=== PATIENT | female | born 1980 | race Caucasian/White ===

== ENCOUNTER 2018-01-21 11:26 | Emergency (ER) | payer SELFPAY ==
[2018-01-21 11:41] VITALS: BP 141/96
--- NOTE | 2018-01-21 15:37 | UC ---
Luke Garza Nikita, scribed for Virgilio Navarrete MD on 01/21/18 at 1150 . Eye Complaint HPI - HPI Summary HPI Summary: This patient is a 37 year old F presenting to [facility] with a chief complaint of possible pink eye since earlier today. She reports her eyes were pruritic, especially in the L eye and started rubbing it. The patient rates the pain 0/10 in severity. Symptoms aggravated by nothing. Symptoms alleviated by nothing. Patient denies eye pain, blurred or decreased vision. The patient also requested for rx for an inhaler because she has hx of asthma. - History of Current Complaint Chief Complaint: UCEye Stated Complaint: EYE COMPLAINT Time Seen by Provider: 01/21/18 11:35 Hx Obtained From: Patient Onset/Duration: Sudden Onset, Lasting Hours, Still Present Timing: Constant Severity Currently: None Pain Intensity: 0 Pain Scale Used: 0-10 Numeric Aggravating Factor(s): Nothing Alleviating Factor(s): Nothing - Allergies/Home Medications Allergies/Adverse Reactions: Allergies Allergy/AdvReac Type Severity Reaction Status Date / Time No Known Allergies Allergy Verified 01/21/18 11:37 PMH/Surg Hx/FS Hx/Imm Hx Endocrine History: Other Other Endocrine History: No DM Respiratory History: Asthma - Surgical History Surgical History: None - Family History Known Family History: Negative: Cardiac Disease, Hypertension, Diabetes - Social History Alcohol Use: Occasionally Substance Use Type: None Smoking Status (MU): Never Smoked Tobacco Review of Systems Constitutional: Other - denies fever Eyes: Other - possible pink eye; denies decreased or blurred vision or eye pain All Other Systems Reviewed And Are Negative: Yes Physical Exam - Summary Physical Exam Summary: VITAL SIGNS: Reviewed. GENERAL: ~Patient is a well-developed and nourished FEMALE who is lying comfortable in the stretcher. ~Patient is not in any acute respiratory distress. HEAD AND FACE: Normocephalic EYES: PERRLA, EOMI x 2. Conjunctival injection but normal visual acuity. EARS: Hearing grossly intact. MOUTH: Oropharynx within normal limits. NECK: Supple, trachea is midline, no adenopathy, no JVD, no carotid bruit. CHEST: Symmetric, no tenderness at palpation LUNGS: Clear to auscultation bilaterally. No wheezing or crackles. CVS: Regular rate and rhythm, S1 and S2 present, no murmurs or gallops appreciated. ABDOMEN: Soft, non-tender. Bowel sounds are normal. No abdominal abnormal pulsations. EXTREMITIES: Full ROM in all major joints, no edema, no cyanosis or clubbing. NEURO: Alert and oriented x 3. No acute neurological deficits. Speech is normal and follows commands. SKIN: Dry and warm Triage Information Reviewed: Yes Vital Signs: Initial Vital Signs Temp 98.5 F 01/21/18 11:38 Pulse 72 01/21/18 11:38 Resp 14 01/21/18 11:38 BP 141/96 01/21/18 11:38 Pulse Ox 100 01/21/18 11:38 Vital Signs Reviewed: Yes Eye Complaint Course/Dx - Course Course Of Treatment: This patient is a 37 year old F presenting to [facility] with a chief complaint of possible pink eye since earlier today. The pt is hemodynamically stable, alert and oriented x3. The patient was found to have increased BP in UC. The patient will follow up with PCP for better control of BP. I discussed all the findings and test results with the patient. The patient will be discharged with dx of allergic rhinitis and instructions to follow up with their PCP. Patient was instructed to return to the urgent care or go to ER immediately if any of the symptoms return or worsens. Plan of care was discussed with the patient, and patient understands and agrees. All questions were answered to patient satisfaction. There were no further complaints or concerns. - Differential Dx/Diagnosis Provider Diagnoses: allergic rhinitis Discharge - Sign-Out/Discharge Documenting (check all that apply): Discharge/Admit/Transfer - Discharge Plan Condition: Stable Disposition: HOME Prescriptions: Albuterol HFA INHALER* [Ventolin HFA Inhaler*] 1 puff INH Q4H PRN #1 mdi PRN Reason: Shortness Of Breath Olopatadine 0.1% OPHTH (NF) [Patanol 0.1% OPHTH (NF)] 1 drop BOTH EYES BID #1 btl Patient Education Materials: Allergic Rhinitis (DC) Referrals: No Primary Care Phys,NOPCP [Primary Care Provider] - Additional Instructions: Take medications as instructed Increase your fluid intake Return to the UC if symptoms worsen The documentation as recorded by the Luke escudero Nikita accurately reflects the service I personally performed and the decisions made by , Virgilio Navarrete MD.
== END 2018-01-21 11:58 | disposition home or self-care (01) ==
LOC: UCEAST 11:26
DX: J45.909 Unspecified asthma, uncomplicated (principal)
CPT/HCPCS: 99202; G0463

== ENCOUNTER 2018-02-23 10:03 | Emergency (ER) | payer BC ==
[2018-02-23 10:25] VITALS: BP 123/81
--- NOTE | 2018-02-23 11:01 | UC ---
Shoulder Pain HPI - HPI Summary HPI Summary: Patient presents with 3 weeks of left posterior shoulder pain. No pain at rest but it hurts when she moves her arm, coughs or sneezes. Some discomfort with deep inspiration. No numbness or tingling. No trauma or injury. No chest pain or shortness of breath. - History of Current Complaint Chief Complaint: UCUpperExtremity Stated Complaint: SHOULDER PAIN Time Seen by Provider: 02/23/18 10:33 Hx Obtained From: Patient Hx Last Menstrual Period: 02/14/18 Onset/Duration: Gradual Onset, Lasting Weeks, Still Present Timing: Constant Severity Initially: Moderate Severity Currently: Moderate Pain Intensity: 7 Pain Scale Used: 0-10 Numeric Character: Aching Aggravating Factor(s): Movement Alleviating Factor(s): Rest Associated Signs And Symptoms: Negative: Swelling, Numbness/Tingling Related History: Dominant Hand Right - Allergies/Home Medications Allergies/Adverse Reactions: Allergies Allergy/AdvReac Type Severity Reaction Status Date / Time No Known Allergies Allergy Verified 02/23/18 10:25 PMH/Surg Hx/FS Hx/Imm Hx Respiratory History: Asthma - Surgical History Surgical History: None Surgery Procedure, Year, and Place: denies - Family History Known Family History: Negative: Cardiac Disease, Hypertension, Diabetes - Social History Alcohol Use: Occasionally Substance Use Type: None Smoking Status (MU): Never Smoked Tobacco - Immunization History Most Recent Tetanus Shot: UNK Review of Systems Constitutional: Negative Skin: Negative Respiratory: Cough Cardiovascular: Negative Gastrointestinal: Negative Musculoskeletal: Myalgia All Other Systems Reviewed And Are Negative: Yes Physical Exam Triage Information Reviewed: Yes Appearance: Well-Appearing, No Pain Distress, Well-Nourished Vital Signs: Initial Vital Signs Temp 98.2 F 02/23/18 10:18 Pulse 62 02/23/18 10:18 Resp 18 02/23/18 10:18 BP 123/81 02/23/18 10:18 Pulse Ox 100 02/23/18 10:18 Vital Signs Reviewed: Yes Eyes: Positive: Conjunctiva Clear ENT: Positive: Hearing grossly normal Neck: Positive: Supple, Nontender Respiratory: Positive: No respiratory distress, No accessory muscle use Cardiovascular: Positive: Pulses Normal Abdomen Description: Positive: Soft Musculoskeletal: Positive: ROM Intact, No Edema, Other: - TTP LEFT MID BACK Neurological: Positive: Alert Psychological: Positive: Age Appropriate Behavior Skin: Negative: rashes Diagnostics - Radiology CXR Xray Interpretation: No Acute Changes Radiology Interpretation Completed By: Radiologist Shoulder Course/Dx - Differential Dx/Diagnosis Provider Diagnoses: ACUTE MUSCLE STRAIN Discharge - Sign-Out/Discharge Documenting (check all that apply): Discharge/Admit/Transfer - Discharge Plan Condition: Stable Disposition: HOME Prescriptions: Cyclobenzaprine TAB* [Flexeril TAB*] 10 mg PO BID PRN #30 tab PRN Reason: Pain Patient Education Materials: Muscle Strain (ED) Forms: *Work Release Referrals: Darlene Chapin MD [Medical Doctor] - 2 Weeks Additional Instructions: CXR TODAY UNREMARKABLE. LIKELY MUSCULOSKELETAL STRAIN. YOUR SYMPTOMS SHOULD IMPROVE SIGNIFICANTLY OVER THE NEXT 1-2 WEEKS. IF YOU DO NOT IMPROVE EXPECTED FOLLOW-UP WITH A PCP OR ORTHO. OTC IBUPROFEN OR ALEVE NEEDED FOR DISCOMFORT. MUSCLE RELAXER BEFORE BED. BE SURE TO GO THROUGH SLOW RANGE OF MOTION AND STRETCHING EXERCISES DAILY YOU ARE ABLE TO PREVENT STIFFENING UP AND MAKING THE DISCOMFORT WORSE. GO TO ER WITHOUT FAIL IF YOU DEVELOP WORSENING PAIN, SHORTNESS OF BREATH, CHEST PAIN, NAUSEA, SWEATS, DIZZINESS OR ANY OTHER CONCERNING SYMPTOMS. - Billing Disposition and Condition Condition: STABLE Disposition: Home
--- NOTE | 2018-02-23 11:34 | RAD ---
INDICATION: Cough, LEFT side pleuritic chest pain. History of asthma. COMPARISON: No relevant prior exams available on the [facility] PACS for comparison. TECHNIQUE: Dual energy PA and routine lateral views of the chest were obtained. REPORT: Clear lungs and pleural spaces. Negative for pneumothorax. The heart, pulmonary vasculature, and mediastinal contours are unremarkable. Unremarkable osseous structures and soft tissue contours. IMPRESSION: No evidence for pneumonia. Negative exam.
== END 2018-02-23 12:00 | disposition home or self-care (01) ==
LOC: UCEAST 10:03
DX: S46.912A Strain of unspecified muscle, fascia and tendon at shoulder and upper arm level, left arm, initial encounter (principal); X58.XXXA Exposure to other specified factors, initial encounter; Y93.9 Activity, unspecified; Y92.9 Unspecified place or not applicable; R05 Cough; J45.909 Unspecified asthma, uncomplicated
CPT/HCPCS: 71046; 99212; G0463

== ENCOUNTER 2018-09-12 18:34 | Emergency (ER) | payer SELFPAY ==
[2018-09-12] MEDS ORDERED: Albuterol 2.5 MG/3 ML NEB.SOL* (0.083%) INH ONE ×3 (18:44→19:36)
[2018-09-12] MEDS ORDERED: Azithromycin TAB* 250 MG PO ONE (18:44)
[2018-09-12] MEDS ORDERED: predniSONE TAB* 20 MG PO ONE (18:44)
[2018-09-12 18:48] VITALS: BP 162/100
--- NOTE | 2018-09-12 19:07 | UC ---
Respiratory Complaint HPI - HPI Summary HPI Summary: 38-year-old woman comes to clinic today with a chief complaint of shortness of breath. Started 2 days ago. She has upper respiratory tract infection symptoms with rhinorrhea and cough. She has chest congestion she's having a hard time getting sputum up. Her nebulizer machine treatments at home are not working well. No complaint of ear pain. No recent fever. - History of Current Complaint Chief Complaint: UCRespiratory Stated Complaint: COUGH,CONGESTION Time Seen by Provider: 09/12/18 18:39 Hx Last Menstrual Period: Apr 2018 Pain Intensity: 2 - Allergies/Home Medications Allergies/Adverse Reactions: Allergies Allergy/AdvReac Type Severity Reaction Status Date / Time No Known Allergies Allergy Verified 09/12/18 18:48 PMH/Surg Hx/FS Hx/Imm Hx Previously Healthy: Yes Respiratory History: Asthma - Surgical History Surgical History: None Surgery Procedure, Year, and Place: denies - Family History Known Family History: Positive: Diabetes, Respiratory Disease - asthma Negative: Cardiac Disease, Hypertension - Social History Alcohol Use: Occasionally Substance Use Type: None Smoking Status (MU): Never Smoked Tobacco - Immunization History Most Recent Tetanus Shot: UNK Review of Systems All Other Systems Reviewed And Are Negative: Yes Constitutional: Positive: Negative Skin: Positive: Negative Eyes: Positive: Negative ENT: Positive: Sore Throat, Nasal Discharge, Sinus Congestion Respiratory: Positive: Shortness Of Breath, Cough, Other - WHEEZING Cardiovascular: Positive: Negative Gastrointestinal: Positive: Negative Motor: Positive: Negative Neurovascular: Positive: Negative Musculoskeletal: Positive: Negative Neurological: Positive: Negative Psychological: Positive: Negative Is Patient Immunocompromised?: No Physical Exam Triage Information Reviewed: Yes Appearance: No Pain Distress, Well-Nourished, Ill-Appearing - MILD, Other: - MILD RESPIRATORY DISTRESS Vital Signs: Initial Vital Signs Temp 98.7 F 09/12/18 18:45 Pulse 106 09/12/18 18:45 Resp 18 09/12/18 18:45 BP 162/100 09/12/18 18:45 Pulse Ox 99 09/12/18 18:45 Vital Signs Reviewed: Yes Eye Exam: Normal Eyes: Positive: Conjunctiva Clear ENT: Positive: Pharyngeal erythema, Nasal congestion, Nasal drainage, TMs normal Neck exam: Normal Neck: Positive: Supple Respiratory: Positive: Respiratory distress - MILD, Wheezing - POOR AIR MOVEMENT Cardiovascular: Positive: RRR Musculoskeletal Exam: Normal Musculoskeletal: Positive: Strength Intact, ROM Intact Neurological Exam: Normal Neurological: Positive: Alert, Muscle Tone Normal Psychological Exam: Normal Psychological: Positive: Normal Response To Family, Age Appropriate Behavior Skin Exam: Normal UC Diagnostic Evaluation - Laboratory O2 Sat by Pulse Oximetry: 99 Respiratory Course/Dx - Course Course Of Treatment: Breathing improved in clinic after albuterol nebulizer. There is more air movement. Second nebulizer given with more improvement. Patient started on a azithromycin and prednisone. Follow-up with primary care doctor are get rechecked here if worse. - Differential Dx/Diagnosis Provider Diagnosis: Bronchitis, Asthma Discharge - Sign-Out/Discharge Documenting (check all that apply): Patient Departure All imaging exams completed and their final reports reviewed: No Studies - Discharge Plan Condition: Stable Disposition: HOME Prescriptions: Azithromycin 250 mg PO DAILY #4 tablet predniSONE TAB* [Deltasone 20 MG TAB*] 40 mg PO DAILY #8 tab Patient Education Materials: Acute Bronchitis (ED), Asthma (ED) Referrals: [facility] PHYSICIAN REFERRAL [Outside] Additional Instructions: FOLLOW UP WITH YOUR DOCTOR. GET RECHECKED FOR ANY WORSENING OF YOUR CONDITION; SHORTNESS OF BREATH, YOU FEEL ILL OR QUESTIONS OR CONCERNS. - Billing Disposition and Condition Condition: STABLE Disposition: Home
== END 2018-09-12 19:44 | disposition home or self-care (01) ==
LOC: UCEAST 18:34
DX: J40 Bronchitis, not specified as acute or chronic (principal); J45.909 Unspecified asthma, uncomplicated
CPT/HCPCS: 99213; A9270-GY; G0463; J7512

== ENCOUNTER 2019-01-14 07:13 | Emergency (ER) | payer OTHER ==
[2019-01-14] MEDS ORDERED: Albuterol 2.5 MG/3 ML NEB.SOL* (0.083%) INH ONE (07:21)
[2019-01-14] MEDS ORDERED: Ipratropium 0.5MG/2.5ML NEB* 0.5 MG/2.5 ML NEB.SOLN INH ONE (07:21)
[2019-01-14 07:23] VITALS: BP 145/97
[2019-01-14] MEDS ORDERED: predniSONE TAB* 20 MG PO ONE (07:34)
--- NOTE | 2019-01-14 08:55 | UC ---
Respiratory Complaint HPI - HPI Summary HPI Summary: 1 WEEK OF WORSENING COUGH AND SHORTNESS OF BREATH. HAS SOME MILD PLEURITIC PAIN. HAS A HISTORY OF ASTHMA AND RAN OUT OF HER ALBUTEROL ABOUT ONE WEEK AGO. AT HER BASELINE PATIENT STATES SHE USES HER ALBUTEROL ON A DAILY BASIS TO KEEP HER SYMPTOMS AT BAY. SHE DENIES ANY FEVER OR CONGESTION. - History of Current Complaint Chief Complaint: UCRespiratory Stated Complaint: BREATHING Time Seen by Provider: 01/14/19 07:21 Hx Obtained From: Patient Hx Last Menstrual Period: about 2 months ago (irr periods) Onset/Duration: Gradual Onset, Lasting Days, Still Present Timing: Constant Severity Initially: Moderate Severity Currently: Moderate Pain Intensity: 6 Pain Scale Used: 0-10 Numeric Character: Cough: Nonproductive Aggravating Factors: Exertion Alleviating Factors: Bronchodilator Associated Signs And Symptoms: Positive: Dyspnea, Pleuritic Chest Pain, Wheezing. Negative: Fever, URI - Allergies/Home Medications Allergies/Adverse Reactions: Allergies Allergy/AdvReac Type Severity Reaction Status Date / Time No Known Allergies Allergy Verified 01/14/19 07:20 Home Medications: Home Medications Albuterol 2.5MG/3ML (0.083%)* [Ventolin 2.5 MG/3 ML NEB.BENJAMIN*] 2.5 mg INH Q4H PRN 01/14/19 [History Confirmed 01/14/19] PMH/Surg Hx/FS Hx/Imm Hx Respiratory History: Asthma - Surgical History Surgical History: Yes Surgery Procedure, Year, and Place: Dental - Family History Known Family History: Positive: Diabetes, Respiratory Disease - asthma Negative: Cardiac Disease, Hypertension - Social History Alcohol Use: Occasionally Substance Use Type: None Substance Use Comment - Amount & Last Used: hx IV drug use Smoking Status (MU): Never Smoked Tobacco - Immunization History Most Recent Tetanus Shot: UNK Review of Systems All Other Systems Reviewed And Are Negative: Yes Constitutional: Positive: Negative Respiratory: Positive: Shortness Of Breath, Cough Cardiovascular: Positive: Negative Gastrointestinal: Positive: Negative Physical Exam Triage Information Reviewed: Yes Appearance: Well-Appearing, No Pain Distress, Well-Nourished Vital Signs: Initial Vital Signs Temp 97.6 F 01/14/19 07:17 Pulse 84 01/14/19 07:17 Resp 18 01/14/19 07:17 BP 145/97 01/14/19 07:17 Pulse Ox 94 01/14/19 07:17 Vital Signs Reviewed: Yes Eyes: Positive: Conjunctiva Clear ENT: Positive: Hearing grossly normal, Pharynx normal, TMs normal Neck: Positive: Supple, Nontender, No Lymphadenopathy Respiratory: Positive: No respiratory distress, No accessory muscle use, Decreased breath sounds. Negative: Wheezing Cardiovascular Exam: Normal Abdomen Description: Positive: Soft Musculoskeletal: Positive: No Edema Neurological: Positive: Alert Psychological: Positive: Age Appropriate Behavior Skin: Negative: Rashes Diagnostics - Radiology CXR Radiology Interpretation Completed By: Radiologist Summary of Radiographic Findings: NO ACTIVE CARDIOPULMONARY DISEASE. Re-Evaluation - Re-Evaluation First Eval Re-Evaluation Time: 08:55 - FEELS A BIT BETTER AFTER DUONEB. O2 SAT STILL 94% Change: Improved Respiratory Course/Dx - Course Course Of Treatment: CHEST X-RAY TODAY UNREMARKABLE. PATIENT FEELS A BIT BETTER AFTER ALBUTEROL/ IPRATROPIUM NEB TREATMENT. ALBUTEROL INHALER TODAY HAS BEEN REFILLED. CONTINUE COURSE OF PREDNISONE FOR 4 MORE DAYS. ADVISED OXYGEN RECHECK IN 2 DAYS HER O2 SAT TODAY WAS 94% ONLY. ADVISED TO GO TO THE ER WITHOUT FAIL IF HER SYMPTOMS WORSEN. DISCUSSED WITH PATIENT THAT HER ASTHMA DOES NOT SEEM TO BE IDEALLY MANAGED SHE IS HAVING TO USE HER ALBUTEROL ON A DAILY BASIS AT HER BASELINE. STRONGLY ENCOURAGED HER TO ESTABLISH WITH A PCP SO SHE CAN FURTHER DISCUSS. - Differential Dx/Diagnosis Provider Diagnosis: Asthma exacerbation Discharge - Sign-Out/Discharge Documenting (check all that apply): Patient Departure All imaging exams completed and their final reports reviewed: Yes - Discharge Plan Condition: Stable Disposition: HOME Prescriptions: Albuterol HFA INHALER* [Ventolin HFA Inhaler*] 2 puff INH Q4H PRN #1 mdi PRN Reason: Shortness Of Breath predniSONE TAB* [Deltasone TAB*] 50 mg PO DAILY #4 tab Patient Education Materials: Asthma (ED) Forms: *Work Release Referrals: [facility] [Outside] - 3 Days Additional Instructions: CHEST X-RAY TODAY WAS UNREMARKABLE. YOUR SYMPTOMS ARE LIKELY DUE TO AN ASTHMA EXACERBATION. GIVEN THAT YOU ARE HAVING TO TAKE YOUR RESCUE ALBUTEROL INHALER ON A DAILY BASIS TO HELP KEEP YOUR SYMPTOMS AT BAY I STRONGLY RECOMMEND YOU FOLLOW-UP WITH A PRIMARY CARE PHYSICIAN TO FURTHER DISCUSS YOUR ASTHMA MANAGEMENT. YOUR OXYGEN SATURATION WAS SLIGHTLY LOW TODAY AT 94%. ONCE YOUR SYMPTOMS HAVE BEEN TREATED THIS SHOULD IMPROVE. YOU NEED TO HAVE YOUR OXYGEN LEVELS RECHECKED IN 2 -3 DAYS. CALL [facility] FOR AN APPOINTMENT. IF YOU ARE UNABLE TO SECURE A FOLLOW-UP APPOINTMENT RETURN TO THE URGENT CARE FOR REEVALUATION. IF YOUR SYMPTOMS WORSEN GO TO THE ER WITHOUT FAIL. CALL THE NUMBER BELOW FOR ASSISTANCE IN ESTABLISHING WITH A PCP An additional resource available to assist in finding the appropriate physician for your health care needs is the [facility] ([facility]). You may contact them by calling [phone]. - Billing Disposition and Condition Condition: STABLE Disposition: Home
== END 2019-01-14 09:08 | disposition home or self-care (01) ==
LOC: UCEAST 07:13
DX: J45.901 Unspecified asthma with (acute) exacerbation (principal); R07.81 Pleurodynia
CPT/HCPCS: 71046; 84702; 99212; G0463; J7512

== ENCOUNTER 2019-02-25 10:53 | Emergency (ER) | payer OTHER ==
--- OUTSIDE RECORDS SUMMARY | 2019-02-25 10:59 | XMS REPORT | Continuity of Care Document ---
:1980 External Reference #:[id number] Author Name Evelyn Berry Care Team Providers Name Role Phone Patient's Choice Primary Care Physician Unavailable Payers Date Identification Numbers Payment Provider Subscriber Effective: 2019 Policy Number: [id number] Leobardo Dupont PayID: [id number] [address] [place] [phone] Family History Date Family Member(s) Observation Comments General Thyroid Disease Father Thyroid Disease Onset: (2005) Mother Ovarian Cancer A+W in 2019 Siblings 2 older brothers Social History Type Date Description Comments Sex Unknown Tobacco Use Start: Unknown End: Former Cigarette Smoker Unknown Smoking Status Reviewed: 02/24/19 Former Cigarette Smoker ETOH Use Occasionally consumes alcohol Tobacco Use Start: Unknown End: Patient is a former smoker Unknown Recreational Drug Use Former Drug User Allergies, Adverse Reactions, Alerts Description No Known Drug Allergies Medications Active Medications SIG Qnty Indications Ordering Provider Date Ventolin HFA Inhale 2 Puffs By Unknown 108(90Base) Mouth Every 4 mcg/Act Aerosol Hours Vital Signs Date Vital Result Comment 02/24/2019 3:10pm Weight 191.00 lb Heart Rate 77 /min BP Systolic 132 mmHg BP Diastolic 86 mmHg O2 % BldC Oximetry 97 % Plan of Treatment Future Appointment(s):03/31/2019 1:30 pm - Kamryn Dai NP at [facility] [id number]/13/2019 - Enrrique Dior MDB18.2 Chronic viral hepatitis CFollow up:3 weeks with K63.89 Other specified diseases of intestineFollow up:3 weeks with E66.9 Obesity, unspecifiedFollow up:3 weeks with
--- OUTSIDE RECORDS SUMMARY | 2019-02-25 10:59 | XMS REPORT | Continuity of Care Document ---
:1980 Author Organization [facility] Address [address], [place] [id number] Phone Care Team Providers Name Role Phone Beth Samuels NP Unavailable Unavailable Allergies, Adverse Reactions, Alerts Substance Reaction Status No Known Allergies Active Medications Medication Instructions Dosage Effective Dates (start - Status Comments stop) Ventolin HFA 90 - Active mcg/actuation aerosol inhaler Problems Condition Effective Dates (start - Clinical Status Comments stop) Human immunodeficiency virus [HIV] - counseling Encntr screen for infections w sexl mode of transmiss Encounter for oth general cnsl and advice on contraception Human immunodeficiency virus [HIV] - counseling Irregular menstruation, unspecified Encounter for oth general cnsl and advice on procreation Other urogenital trichomoniasis Encounter for screening for malignant neoplasm of cervix Unspecified viral hepatitis C without hepatic coma Encounter for oth general cnsl and advice on contraception Procedures Procedure Date No information Results Test Name Date and Time Measure Units Reference Range Abnormal Flag Status Comments No information Advance Directives Directive Yes / No Effective Date File Name No information Encounters Encounter Practice Location Reason(s) Diagnoses Date Provider Providers Description For Visit Copied on Encounter [facility] [place] [address] Beth. [facility] [address] [facility] [facility], , [place], [place], [address], [id number], [place]. [place] tel:+[phone] tel:[phone] [facility] [place] immunodeficiency 8-201 Beth. Provider: Southern virus [HIV] 9 [address] counselingEncntr [place], [address], [address] [place] infections w sexl [place], [place] [address], [place], [place], [place], transmissEncounter [address], [place], [address]. [id number], for ot general [place]. tel:+[phone] [place] cnsl and advice on tel:[phone] tel:[phone] [facility] [place] immunodeficiency 6-201 Jeannie. Southern virus [HIV] [address] counselingIrregular [place], [address] [place] unspecifiedEncounte [place], [place], [place], [place] for ot general [place] [id number], [id number], procreationOther [place]. [place] urogenital tel:[phone] trichomoniasisEncou [phone] nter for screening for malignant neoplasm of cervixUnspecified viral hepatitis C without hepatic comaEncounter for ot general cnsl and advice on contraception Family History Family Member Diagnosis Age At Onset 1st degree relative No hx of coronary heart disease (female <65, male <55) 1st degree relative No hx of venous thromboembolism Mother uterine Immunizations Vaccine Date Status Comments No information Payers Payer name Insurance type Covered libertarian ID Authorization(s) Medicaid MC [id number] Social History Type Description Quantity Date Captured Comments Alcohol Use Details Unknown Caffeine Use Details Unknown Tobacco Use Status Unknown Smoking Status Never smoker Sex Female Vital Signs Date / Height Weight BMI Pulse Blood Temperature Respiratory Body Head BMI Pulse Inhaled Time: Rate Pressure Rate Surface Circumference percentile Ox Ox Area No information Chief Complaint And Reason For Visit No information Reason For Referral Reason For Referral No information Plan Of Treatment Date Type Action Status No information History Of Present Illness Encounter Date Complaint History Of Present Illness No information Functional Status Date Functional Assessment No information Medications Administered Medication Instructions Dosage Effective Dates (start - stop) Status Comments No information Instructions Date Instruction Additional Information No information Assessments Type Assessment Date No information Goals Health Concern Goal Type Priority Status Date No information Medical Equipment Description Device [place] Device Identifier Effective Dates (start - stop ) Status No information Mental Status Date Cognitive Assessment No information Health Concerns Observation Date No information Concern Status Date No information
--- OUTSIDE RECORDS SUMMARY | 2019-02-25 10:59 | XMS REPORT | Continuity of Care Document ---
:1980 Author Organization [facility] Address [address], [place] [id number] Phone Care Team Providers Name Role Phone [...] Copied on Encounter [facility] [place] 7 Beth. [facility] 9 [address] [facility], [address] [facility], , [place], [place], [address], [id number], [place]. [place] tel:[phone] tel:[phone] [facility] Human Arvind Referring [facility] [place] immunodeficiency 8-201 Beth. Provider: Southern virus [HIV] 9 [address] counselingEncntr [place] Arvind [place], [place], [address], [address] infections w sexl [place], [address] St, St, [place], [place], [place], [place] [address], [place], [address]. [id number], for ot general [place]. tel:+[phone] [place] cnsl and advice on tel:[phone] tel:[phone] contraception [phone] [facility] Human Mar-0 [facility] [place] immunodeficiency 6-201 Jeannie. [place] virus [HIV] 9 [address] counselingIrregular [place], [address], [address], [address] Craig unspecifiedEncounte [place], St, [place], [place] for [place] [id number], [id number], procreationOther [place]. [place] urogenital tel:[phone] trichomoniasisEncou [phone] nter for screening for malignant neoplasm of [...] information Payers Payer name Insurance type Covered republican ID Authorization(s) Medicaid MC [id number] Social History Type Description Quantity Date Captured [...] Date No information Medical Equipment Description Device [place] Device Identifier Effective Dates (start - stop ) Status No information Mental Status Date Cognitive Assessment No information Health Concerns Observation Date No information Concern Status Date No information
[2019-02-25 11:12] VITALS: BP 118/79
--- NOTE | 2019-02-25 12:34 | UC ---
Throat Pain/Nasal Brain HPI - HPI Summary HPI Summary: Head congestion and cold symptoms for 2 days. Patient has a history of asthma and she's run out of her albuterol inhaler. - History of Current Complaint Chief Complaint: UCRespiratory Stated Complaint: SINUS ISSUES Time Seen by Provider: 02/25/19 12:30 Hx Obtained From: Patient Hx Last Menstrual Period: 10/2018 ?: No Onset/Duration: Gradual Onset Severity: Mild Pain Intensity: 5 Cough: Nonproductive Associated Signs & Symptoms: Positive: Wheezing - Allergies/Home Medications Allergies/Adverse Reactions: Allergies Allergy/AdvReac Type Severity Reaction Status Date / Time No Known Allergies Allergy Verified 02/25/19 11:13 PMH/Surg Hx/FS Hx/Imm Hx Previously Healthy: Yes Respiratory History: Asthma - Surgical History Surgical History: Yes Surgery Procedure, Year, and Place: Dental - Family History Known Family History: Positive: Diabetes, Respiratory Disease - asthma Negative: Cardiac Disease, Hypertension - Social History Alcohol Use: Occasionally Substance Use Type: None Substance Use Comment - Amount & Last Used: hx IV drug use Smoking Status (MU): Never Smoked Tobacco - Immunization History Most Recent Tetanus Shot: UNK Review of Systems All Other Systems Reviewed And Are Negative: Yes ENT: Positive: Nasal Discharge, Sinus Congestion Respiratory: Positive: Cough - Nonproductive cough, patient has had some wheezing but she is out of her albuterol inhaler and would like a refill. Is Patient Immunocompromised?: No Physical Exam Triage Information Reviewed: Yes Appearance: Well-Appearing, No Pain Distress, Well-Nourished Vital Signs: Initial Vital Signs Temp 98 F 02/25/19 11:10 Pulse 65 02/25/19 11:10 Resp 16 02/25/19 11:10 BP 118/79 02/25/19 11:10 Pulse Ox 99 02/25/19 11:10 Vital Signs Reviewed: Yes Eyes: Positive: Conjunctiva Clear ENT: Positive: Pharynx normal, Nasal congestion, Nasal drainage - Clear nasal coryza, TMs normal, Uvula midline Neck: Positive: Supple, Nontender, No Lymphadenopathy Respiratory: Positive: Lungs clear, Normal breath sounds, No respiratory distress, No accessory muscle use Cardiovascular: Positive: RRR, No Murmur, Pulses Normal, Brisk Capillary Refill Musculoskeletal Exam: Normal Neurological Exam: Normal Psychological Exam: Normal Skin Exam: Normal Throat Pain/Nasal Course/Dx - Course Course Of Treatment: Patient is comfortable here. Basically she is requesting an albuterol inhaler. She has an upper respiratory illness. We talked about different over-the- counter medication she can use for comfort measures. - Differential Dx/Diagnosis Provider Diagnosis: URI (upper respiratory infection) Discharge - Sign-Out/Discharge Documenting (check all that apply): Patient Departure All imaging exams completed and their final reports reviewed: No Studies - Discharge Plan Condition: Fair Disposition: HOME Prescriptions: Albuterol HFA INHALER* [Ventolin HFA Inhaler*] 2 puff INH Q4H PRN 5 Days #1 mdi PRN Reason: Wheezing Patient Education Materials: Upper Respiratory Infection (DC) Referrals: No Primary Care Phys,NOPCP [Primary Care Provider] - [facility] [Outside] Additional Instructions: Increase fluids, [id number] cold medicine as directed, use her albuterol inhaler 2 puffs every 4-6 hours as needed for wheezing. Definite follow-up with your primary care provider in 3 or 4 days if no improvement. - Billing Disposition and Condition Condition: FAIR Disposition: Home
== END 2019-02-25 12:40 | disposition home or self-care (01) ==
LOC: UCEAST 10:53
DX: J06.9 Acute upper respiratory infection, unspecified (principal); J45.909 Unspecified asthma, uncomplicated
CPT/HCPCS: 99212; G0463

== ENCOUNTER 2019-06-27 14:57 | Emergency (ER) | payer OTHER ==
--- OUTSIDE RECORDS SUMMARY | 2019-06-27 15:39 | XMS REPORT | Continuity of Care Document ---
:1980 Author Organization [facility] Address [address] [place] [address] Phone Care Team Providers Name Role Phone Chantale Powell Unavailable Unavailable PPS[facility], NURSE OR MA Unavailable Unavailable Allergies, Adverse Reactions, Alerts Substance Reaction Status No Known Allergies Active Medications Medication Instructions Dosage Effective Dates Status Comments (start - stop) Provera 10 mg tablet take 1 tablet by oral 10 MG - Active route every day Vitamin 27 Take 1 tablet as - Active mg iron-800 mcg directed daily tablet Ventolin HFA 90 - Active mcg/actuation aerosol inhaler Problems Condition Effective Dates (start - Clinical Status Comments stop) Encounter for test, result positive Weeks of gestation of not specified Encounter for test, result negative Human immunodeficiency virus [HIV] - counseling Encounter for screening for human - immunodeficiency virus Irregular menstruation, unspecified Amenorrhea, unspecified Encounter for oth general cnsl and advice on procreation Human immunodeficiency virus [HIV] - counseling Encntr [...] and advice on contraception Procedures Procedure Date POSITIVE TEST MA ONLY VISIT EST Contraceptive Diabetes Specialist.Svc. Other Diabetes Specialist.Svc. STI Diabetes Specialist.Svc. POS PREG DESIRED NOW REFERRAL FOR Results Test Name Date and Time Measure Units Reference Range Abnormal Flag Status Comments Panel Description: High Sensitivity Urine Test Final High Sensitivity Urine 13:20:21 PositiveInternal Quality Final Test Control: Positive Advance Directives Directive Yes / No Effective Date File Name No information Encounters Encounter Practice Location Reason(s) Diagnoses Date Provider Providers Description For Visit Copied on Encounter [facility] Encounter for [facility]- [place] [place] Test test, Chantale. Provider: [facility] (chief result [address] complaint) positiveWeeks of [place], [address] [place], [address] [place] not [place], St, St, [place], specified [place], [place], [address]. [place], [address]. [id number], tel:+60 tel:[phone] [id number] tel:[phone] [facility] [phone] Provider: NURSE OR [place] P[facility]. [facility] Iker-2 [facility] [place] 0- [place] 9 Sue[place]. [address] [place], [address] [place] [address] [place] [address], St, [place], [place], [id number], [id number]. [place] tel:+60 tel:[phone] [facility] Encounter for Iker-1 [place] Referring [facility] [place] test, 3 [place] Provider: [facility] result 9 Sue[place]. Sueane Finger negativeHuman [address] [place], 620 immunodeficiency [place], W [place] virus [HIV] St, [address], [place], counselingEncounter [place], [place] [address], [place], [place] screening [place], [place], [id number], [place] [address]. [place], [address]. [place] immunodeficiency tel:+160 tel:+607 tel:[phone] virusIrregular [phone] menstruation, unspecifiedAmenorrh ea, unspecifiedEncounte r for ot general cnsl and advice on procreation Planned [facility] Human Apr-0 Arvind Referring [facility] [place] immunodeficiency 8-201 Beth. Provider: [place] virus [HIV] 9 [address] counselingEncntr [place] Arvind J, [place], [address], [address] [place] infections w sexl [place], [place] [address], St, [place], [place], [place], [place] [address], [place], [address]. [id number], for ot general [place]. tel:+[phone] [place] cnsl and advice on tel:[phone] tel:[phone] contraception [phone] [facility] Human Mar-0 [facility] [place] immunodeficiency 6-201 Jeannie. [facility] virus [HIV] 9 [address] counselingIrregular [place], [address], [address], W [place] unspecifiedEncounte [place], St, [place], [place] [address], [id number], procreationOther [place]. [place] urogenital tel:[phone] trichomoniasisEncou [phone] nter for screening for malignant neoplasm of cervixUnspecified viral hepatitis C without hepatic comaEncounter for [facility] general cnsl and advice on contraception Family History Family Member Diagnosis Age At Onset 1st degree relative No hx of coronary heart disease (female <65, male <55) 1st degree relative No hx of venous thromboembolism Mother uterine Immunizations Vaccine Date Status Comments No information Payers Payer name Insurance type Covered constitution party ID Authorization(s) Leobardo DE LA VEGA [facility] CI [id number] Social History Type Description Quantity Date Captured Comments Alcohol Use Details Unknown Caffeine Use Details Unknown Tobacco Use Status Current non-smoker Smoking Status Never smoker Non-Smoking Tobacco : No Details Available : No Details Available 2018 Use Details Sex Female Vital Signs Date / Height Weight BMI Pulse Blood Temperature Respiratory Body Head BMI Pulse Inhaled Time: Rate Pressure Rate Surface Circumference percentile Ox Ox Area No information Chief Complaint And Reason For Visit Most recent encounter only, dated '06/09/2019 13:00'. Test ( chief complaint) Reason For Referral Reason For Referral No information Plan Of Treatment Date Type Action Status No information History Of Present Illness Encounter Date Complaint History Of Present Illness No information Functional Status Date Functional Assessment No information Medications Administered Medication Instructions Dosage Effective Dates (start - stop) Status Comments No information Instructions Date Instruction Additional Information No information Assessments Type Assessment Date assessment Encounter for test, result positive assessment Weeks of gestation of not specified Goals Health Concern Goal Type Priority Status Date No information Medical Equipment Description Device [place] Device Identifier Effective Dates (start - stop ) Status No information Mental Status Date Cognitive Assessment No information Health Concerns Observation Date No information Concern Status Date No information
[2019-06-27 17:54] LABS: ABS Basophils 0.1 10^3/ul (0-0.2); ABS Eosinophils 0.3 10^3/ul (0-0.6); ABS Lymphocytes 2.7 10^3/ul (1.0-4.8); ABS Monocytes 0.8 10^3/ul (0-0.8); ABS Neutrophils 3.6 10^3/ul (1.5-7.7); Eosinophil % 4.1 %; Hematocrit 42 % (35-47); Lymphocyte % 36.5 %; Mean Corpuscular HGB Conc 34 g/dL (31-36); Mean Corpuscular Hemoglobin 33 pg (27-31); Mean Corpuscular Volume 99 fL (80-97); Mean Platelet Volume 8.3 fL (7.4-10.4); Nucleated Red Blood Cells % 0.1; Platelet Count 212 10^3/uL (150-450); Red Blood Count 4.21 10^6 /uL (3.70-4.87); Red Cell Distribution Width 12 % (10-15); White Blood Count 7.4 10^3/uL (3.5-10.8)
[2019-06-27 18:00] LABS: BUN/Creatinine Ratio 12.7 (8-20); EGFR African American 111.5 (>60); EGFR Non-African American 92.1 (>60); Potassium 3.9 mmol/L (3.5-5.0)
--- NOTE | 2019-06-27 18:08 | ED ---
GI/ HPI - HPI Summary HPI Summary: Pt is a 39 y/o F presenting to the ED with a chief complaint of vaginal bleeding. She is estimated 9 weeks and passed a clot about 2 days ago. Since then, her vaginal bleeding has increased and she has had some pink discharge. She states she is intermittently bleeding and has been passing small clots, and the last time that she went to the bathroom there was no blood. She denies abd pain. LNMP 04/24/19. A0. Her urine test was positive on 06/09/19. She is taking pre- vitamins. - History of Current Complaint Chief Complaint: EDOBProblems Time Seen by Provider: 06/27/19 17:27 Stated Complaint: 9 WEEKS - BLEEDING PER PT Hx Obtained From: Patient Hx Last Menstrual Period: 04/24/19 Onset/Duration: Started Days Ago, Still Present Timing: Constant, Intermittent, Lasting Hours Severity: Mild Current Severity: None Vaginal Bleeding Description: Clots Pain Intensity: 0 Location of Pain: None Associated Signs and Symptoms: Negative: Abdominal Pain Additional Signs & Symptoms: Positive: Vaginal Bleeding, Vaginal Discharge Aggravating Factor(s): Nothing Alleviating Factor(s): Nothing - Allergy/Home Medications Allergies/Adverse Reactions: Allergies Allergy/AdvReac Type Severity Reaction Status Date / Time No Known Allergies Allergy Verified 06/27/19 18:13 PMH/Surg Hx/FS Hx/Imm Hx Previously Healthy: Yes Endocrine/Hematology History: Denies: Hx Diabetes, Hx Thyroid Disease Cardiovascular History: Denies: Hx Hypertension Respiratory History: Reports: Hx Asthma Denies: Hx Chronic Obstructive Pulmonary Disease (COPD) GI History: Denies: Hx Ulcer - Surgical History Surgery Procedure, Year, and Place: Dental Infectious Disease History: No Infectious Disease History: Denies: Hx Hepatitis, Hx Human Immunodeficiency Virus (HIV), Traveled Outside the [place] in Last 30 Days - Family History Known Family History: Positive: Diabetes, Respiratory Disease - asthma Negative: Cardiac Disease, Hypertension - Social History Alcohol Use: Occasionally Hx Substance Use: No Substance Use Type: Reports: None Substance Use Comment - Amount & Last Used: hx IV drug use Hx Tobacco Use: No Smoking Status (MU): Never Smoked Tobacco Review of Systems Negative: Abdominal Pain Positive: discharge - vaginal, other - vaginal bleeding All Other Systems Reviewed And Are Negative: Yes Physical Exam - Summary Physical Exam Summary: Constitutional: Well-developed, Well-nourished, Alert. (-) Distressed Skin: Warm, Dry HENT: Normocephalic; Atraumatic Eyes: Conjunctiva normal Neck: Musculoskeletal ROM normal neck. (-) JVD, (-) Stridor, (-) Tracheal deviation Cardio: Rhythm regular, rate normal, Heart sounds normal; Intact distal pulses; The pedal pulses are 2+ and symmetric. Radial pulses are 2+ and symmetric. Pulmonary/Chest wall: Effort normal. (-) Respiratory distress, (-) Wheezes, (-) Rales Abd: Soft, (-) tenderness, (-) Distension, (-) Guarding, (-) Rebound Musculoskeletal: (-) Edema Neuro: Alert, Oriented x3 Psych: Mood and affect Normal Pt does not want pelvic exam. No active vaginal bleeding. Triage Information Reviewed: Yes Vital Signs On Initial Exam: Initial Vitals Temp Pulse Resp BP Pulse Ox 98.7 F 79 16 130/88 100 06/27/19 15:08 06/27/19 15:08 06/27/19 15:08 06/27/19 15:08 06/27/19 15:08 Vital Signs Reviewed: Yes Procedures - Sedation Patient Received Moderate/Deep Sedation with Procedure: No Diagnostics - Vital Signs Vital Signs Temp Pulse Resp BP Pulse Ox 06/27/19 15:08 98.7 F 79 16 130/88 100 - Laboratory Lab Results: Lab Results 06/27/19 06/27/19 Range/Units 17:32 17:33 WBC 7.4 (3.5-10.8) 10^3/uL RBC 4.21 (3.70-4.87) 10^6 /uL Hgb 14.0 (12.0-16.0) g/dL Hct 42 (35-47) % MCV 99 H (80-97) fL MCH 33 H (27-31) pg MCHC 34 (31-36) g/dL RDW 12 (10-15) % Plt Count 212 (150-450) 10^3/uL MPV 8.3 (7.4-10.4) fL Neut % (Auto) 48.0 % Lymph % (Auto) 36.5 % Preston % (Auto) 10.6 % Eos % (Auto) 4.1 % Baso % (Auto) 0.8 % Absolute Neuts (auto) 3.6 (1.5-7.7) 10^3/ul Absolute Lymphs (auto) 2.7 (1.0-4.8) 10^3/ul Absolute Monos (auto) 0.8 (0-0.8) 10^3/ul Absolute Eos (auto) 0.3 (0-0.6) 10^3/ul Absolute Basos (auto) 0.1 (0-0.2) 10^3/ul Absolute Nucleated RBC 0.0 10^3/ul Nucleated RBC % 0.1 Sodium 137 (135-145) mmol/L Potassium 3.9 (3.5-5.0) mmol/L Chloride 106 (101-111) mmol/L Carbon Dioxide 29 (22-32) mmol/L Anion Gap 2 (2-11) mmol/L BUN 9 (6-24) mg/dL Creatinine 0.71 (0.51-0.95) mg/dL Est GFR ( Amer) 111.5 (>60) Est GFR (Non-Af Amer) 92.1 (>60) BUN/Creatinine Ratio 12.7 (8-20) Glucose 86 (70-100) mg/dL Calcium 9.0 (8.6-10.3) mg/dL Beta HCG, Quant Pending Result Diagrams: 06/27/19 17:32 06/27/19 17:33 Lab Statement: Any lab studies that have been ordered have been reviewed, and results considered in the medical decision making process. - Ultrasound US Ultrasound Interpretation Completed By: Radiologist Summary of Ultrasound Findings: POLE WITHOUT DETECTABLE CARDIAC ACTIVITY, WITH DISCORDANT AGE BY CROWN-RUMP LENGTH. THIS MAY REPRESENT EARLY FAILURE. RECOMMEND CORRELATION WITH SERIAL BETA-HCG LEVELS AND FOLLOW- UP EXAMINATION. ED physician has reviewed this report. GIGU Course/Dx - Course Course Of Treatment: Pt is a 39 y/o F presenting to the ED with a chief complaint of vaginal bleeding. She is estimated 9 weeks and passed a clot about 2 days ago. Since then, her vaginal bleeding has increased and she has had some pink discharge. She states she is intermittently bleeding and has been passing small clots, and the last time that she went to the bathroom there was no blood. She denies abd pain. LNMP 04/24/19. A0. Her urine test was positive on 06/09/19. She is taking pre- vitamins. Pt's physical exam is normal. US shows: POLE WITHOUT DETECTABLE CARDIAC ACTIVITY, WITH DISCORDANT AGE BY CROWN-RUMP LENGTH. THIS MAY REPRESENT EARLY FAILURE. RECOMMEND CORRELATION WITH SERIAL BETA-HCG LEVELS AND FOLLOW- UP EXAMINATION. Pt's beta hcg is 6369. She will follow up with Dr. Greene on the as scheduled. Dx is threatened miscarriage. Pt was given a copy of her US report as well as her beta hcg number. - Diagnoses Provider Diagnoses: Threatened miscarriage Discharge ED - Sign-Out/Discharge Documenting (check all that apply): Patient Departure - Discharge Plan Condition: Stable Disposition: HOME Patient Education Materials: Threatened Miscarriage (ED) Forms: *Work Release Referrals: Anthony Greene MD [Medical Doctor] - Additional Instructions: Follow up with Dr. Greene on the as planned. - Billing Disposition and Condition Condition: STABLE Disposition: Home - Attestation Statements Document Initiated by Blancaibe: Yes Documenting Scribe: Dayna Alston Provider For Whom Deisi is Documenting (Include Credential): Jae Jimenez MD. Scribe Attestation: Dayna Garza, tresaed for Jae Jimenez MD. on 06/27/19 at 1858. Scribe Documentation Reviewed: Yes Provider Attestation: The documentation as recorded by the scribe, Dayna Alston accurately reflects the service I personally performed and the decisions made by me, Jae Jimenez MD. Status of Scribe Document: Viewed
[2019-06-27 18:41] VITALS: BP 128/88
== END 2019-06-27 18:40 | disposition home or self-care (01) ==
LOC: ED 14:57
DX: O20.0 Threatened abortion (principal); Z3A.09 9 weeks gestation of pregnancy
CPT/HCPCS: 36415; 76801; 80048; 84702; 85025; 99282

== ENCOUNTER → 2019-09-08 07:54 | Day surgery (SDC) | payer OTHER ==
[~2019-09-08 07:54] MED LIST: Acetaminophen TAB* 325 MG ONE; Acetaminophen TAB* 325 MG PO PRN; Buffered Lidocaine 1% SYRIN* 1 ML/SYRINGE INTRADERM ONE; DOXYcycline IV 200 MG in NS 250 mL *Pre-Op OBGYN IVPB ONE; Dexamethasone IV* 4 MG/ML 1 ML (4 MG) ONE; DiMENhydriNATE IV* 50 MG/ML VIAL IV PUSH PRN; Ketorolac INJ* 30 MG/ML 1 ML VIAL ONE; Lactated Ringers 1000 ML Bag* 1,000 ML IV SCH; Lidocaine 2% PF * 5 ML VIAL ONE; Metoclopramide IV* 5 MG/ML 2 ML VIAL ONE; Midazolam* 1 MG/ML 2 ML VIAL (2 MG) ONE; Naloxone* 0.4 MG/ML 1 ML VIAL IV PRN; Ondansetron INJ* 2 MG/ML VIAL ONE; Propofol* 10 MG/ML 20 ML BTL ONE; fentaNYL* 50 MCG/ML 2 ML VIAL (100 MCG VIAL) IV PRN; oxyCODONE TAB* 5 MG TAB PO PRN
[2019-09-08 11:26] VITALS: BP 110/68
--- NOTE | 2019-09-08 21:26 | OP ---
OPERATIVE REPORT: DATE OF OPERATION: 09/08/19 - [facility] DATE OF : 82 SURGEON: Anthony Greene MD. ANESTHESIOLOGIST: Kamryn Narayan DO. ANESTHESIA: Monitored anesthesia care. PRE-OP DIAGNOSIS: Missed in the first trimester at 6 weeks gestational age. POST-OP DIAGNOSIS: Missed in the first trimester at 6 weeks gestational age. OPERATIVE PROCEDURE: Dilation and evacuation with suction curettage. ESTIMATED BLOOD LOSS: None. SPECIMENS SENT TO PATHOLOGY: Endometrial curettings. FLUIDS: She received 200 cc of IV crystalloid fluid. URINE OUTPUT: 200 cc of clear urine. FINDINGS: Exam under anesthesia revealed a normal external genitalia. Vaginal vault was within normal limits and contained small clot of blood in the vaginal vault. The cervix was about 1 cm dilated and the uterus was sounded to 10 cm in an anteverted position and moderate amounts of products of conception were removed with dilation and evacuation, which were then sent to Pathology. There were no complications. DESCRIPTION OF PROCEDURE: The patient was taken to the operating room where she was identified. She was placed on the operating room table where monitored anesthesia care was obtained. The patient was sedated. She was then placed in a dorsal lithotomy position, prepped and draped in normal sterile fashion. Attention was then brought on to the patient's perineum where the bladder was catheterized and cleared off urine. At this point, a weighted speculum was inserted into the patient's vagina. The cervix was identified. It was then grasped with a single- tooth tenaculum. The uterus was then sounded to 10 cm, in anteverted position. Through the cervix, a 10-mm curved suction curette was introduced, applied to suction and a suction curettage was then performed. Once the suction curettage was deemed to have emptied the uterine cavity, a sharp curettage was performed to confirm this. At this point, all of the instruments were removed from the patient's vagina. Sponge, lap, and needle counts were correct x2. She was then transferred to the recovery room area in stable condition. [id number]/[facility] #: [id number] MTDD
== END | disposition home or self-care (01) ==
LOC: OR 07:54
PROVIDERS: ATTEND Obstetrics & Gynecology
DX: O02.1 Missed abortion (principal); B18.2 Chronic viral hepatitis C; J45.909 Unspecified asthma, uncomplicated
CPT/HCPCS: 88305; A9270-GY; J1100; J1885; J2250; J2405; J2704; J2765